=== PATIENT | female | born 1955 | race Caucasian/White ===

== ENCOUNTER 2024-01-05 20:34 | Emergency (ER) | payer OTHER ==
[~2024-01-05] VITALS: Ht 157.5 cm; Wt 81.8 kg
[2024-01-05 20:38] VITALS: TEMP 97.8
[2024-01-05 21:40] LABS: BASOPHILS % (AUTO) 0.3 % (0.0-2.0); EOSINOPHILS % (AUTO) 0.8 % (1.0-6.0); HEMOGLOBIN 16.4 g/dL (12.0-16.0); LYMPHOCYTES # (AUTO) 1.5 K/uL (1.0-4.8); MEAN CORPUSCULAR HEMOGLOBIN 32.1 pg (26.0-34.0); MEAN CORPUSCULAR HGB CONC 33.5 G/dL (31.0-37.0); MEAN CORPUSCULAR VOLUME 96 fL (80-100); MONOCYTES # (AUTO) 0.8 K/uL (0.1-1.0); MONOCYTES % (AUTO) 7.9 % (2.0-9.0); NEUTROPHILS # (AUTO) 7.2 K/uL (1.8-7.7); PLATELET COUNT (AUTO) 164 K/uL (150-450); RED BLOOD CELL COUNT(AUTO) 5.12 MIL/uL (4.00-5.20); RED CELL DISTRIBUTION WIDTH 14.4 % (11.5-14.5); WHITE BLOOD COUNT (AUTO) 9.5 K/uL (4.5-11.0)
[2024-01-05] MEDS: MORPHINE SULFATE 2 MG/ML SYRINGE IVP ONE (21:48)
[2024-01-05] MEDS: ACETAMINOPHEN 500 MG TABLET PO ONE (21:48)
[2024-01-05 21:50] LABS: ANION GAP 5 mmol/L (8-16); CALCIUM, TOTAL 9.9 mg/dL (8.8-10.5); CARBON DIOXIDE 34 mmol/L (22-29); CHLORIDE 101 mmol/L (98-107); GLOMERULAR FILTR. RATE CALC > 60 mL/min (>60); GLUCOSE,RANDOM 95 mg/dL (70-110); POTASSIUM 3.9 mmol/L (3.5-5.1); SODIUM SERUM 140 mmol/L (136-145); UREA NITROGEN, BLOOD 19 mg/dL (7-18)
[2024-01-05] MEDS ORDERED: IOHEXOL 350 MG/ML 100 ML VIAL ONE (21:52)
[2024-01-05] MEDS ORDERED: SODIUM CHLORIDE 0.9% 100 ML ONE (21:52)
[2024-01-05 21:56] LABS: ALANINE AMINOTRANSFERASE 22 U/L (12-78); ALBUMIN 3.7 g/dL (3.4-5.0); ALKALINE PHOSPHATASE 99 U/L (46-116); ASPARTATE AMINOTRANSFERASE 23 U/L (15-37); BILIRUBIN,TOTAL 0.5 mg/dL (0.1-1.0); TOTAL PROTEIN, SERUM 7.3 g/dL (6.4-8.2)
[2024-01-05] MEDS ORDERED: MORPHINE SULFATE 4 MG/ML SYRINGE IVP ONE (22:30)
[2024-01-05] MEDS: SODIUM CHLORIDE 0.9% 1,000 ML IV ONE (22:50)
[2024-01-05] MEDS: MORPHINE SULFATE 4 MG/ML SYRINGE IVP ONE (22:50)
[2024-01-05 23:28] LABS: COVID AG,FIA SOURCE NASAL SWAB
[2024-01-05 23:46] LABS: SARS-COV2 (COVID) ANTIGEN,FIA Negative (Negative)
[2024-01-06 00:52] VITALS: BP 128/88; PULSE 74; RESP 18
== END 2024-01-06 01:07 | disposition home or self-care (01) ==
LOC: EMS 20:35
DX: K62.3 Rectal prolapse (principal); J45.909 Unspecified asthma, uncomplicated; J44.9 Chronic obstructive pulmonary disease, unspecified; I25.10 Atherosclerotic heart disease of native coronary artery without angina pectoris; K21.9 Gastro-esophageal reflux disease without esophagitis; M79.7 Fibromyalgia; F17.210 Nicotine dependence, cigarettes, uncomplicated; Z88.8 Allergy status to other drugs, medicaments and biological substances; Z20.822 Contact with and (suspected) exposure to COVID-19
CPT/HCPCS: 99285; 74177; 96374; 96361; 87426; 80053; 85025; 36415; 96376; J2270 ×2; Q9967; J7050

== ENCOUNTER 2024-01-07 12:54 | Emergency (ER) | payer OTHER ==
[~2024-01-07] VITALS: Ht 157.5 cm; Wt 81.8 kg
[2024-01-07 13:30] VITALS: TEMP 97.9
[2024-01-07 14:25] VITALS: BP 127/79; PULSE 91; RESP 19
== END 2024-01-07 14:37 | disposition home or self-care (01) ==
LOC: EMS 13:01
DX: K62.3 Rectal prolapse (principal); J45.909 Unspecified asthma, uncomplicated; I25.10 Atherosclerotic heart disease of native coronary artery without angina pectoris; J44.9 Chronic obstructive pulmonary disease, unspecified; K21.9 Gastro-esophageal reflux disease without esophagitis; M79.7 Fibromyalgia; F17.210 Nicotine dependence, cigarettes, uncomplicated; Z88.2 Allergy status to sulfonamides; Z88.5 Allergy status to narcotic agent
CPT/HCPCS: 99281; Z7502

== ENCOUNTER 2024-01-09 14:13 | Inpatient (IN) | payer OTHER, MEDICARE ==
[~2024-01-09] VITALS: Ht 162.6 cm; Wt 90.6 kg
[2024-01-09] MEDS: MethylPREDNISolone SOD SUCC 125 MG/2 ML VIAL IVP ONE (14:51)
[2024-01-09 15:09] LABS: BASOPHILS % (AUTO) 0.4 % (0.0-2.0); EOSINOPHILS % (AUTO) 1.2 % (1.0-6.0); LYMPHOCYTES # (AUTO) 1.5 K/uL (1.0-4.8); LYMPHOCYTES % (AUTO) 18.1 % (22.0-44.0); MEAN CORPUSCULAR HGB CONC 33.4 G/dL (31.0-37.0); MEAN CORPUSCULAR VOLUME 96 fL (80-100); MONOCYTES # (AUTO) 0.7 K/uL (0.1-1.0); NEUTROPHILS # (AUTO) 6.1 K/uL (1.8-7.7); NEUTROPHILS % (AUTO) 72.3 % (40.0-70.0); PLATELET COUNT (AUTO) 154 K/uL (150-450); RED BLOOD CELL COUNT(AUTO) 4.69 MIL/uL (4.00-5.20); RED CELL DISTRIBUTION WIDTH 14.8 % (11.5-14.5); WHITE BLOOD COUNT (AUTO) 8.4 K/uL (4.5-11.0)
[2024-01-09 15:21] LABS: PROTHROMBIN TIME 10.7 SEC (9.4-11.6)
[2024-01-09 15:24] LABS: TROPONIN I-HIGH SENSITIVITY 8 ng/L (<51)
[2024-01-09 15:26] LABS: B-TYPE NATRIURETIC PEPTIDE 40 pg/mL (0-100)
[2024-01-09 15:29] LABS: ANION GAP 9 mmol/L (8-16); CALCIUM, TOTAL 9.4 mg/dL (8.8-10.5); CARBON DIOXIDE 29 mmol/L (22-29); CHLORIDE 101 mmol/L (98-107); CREATININE 0.86 mg/dL (0.60-1.30); GLOMERULAR FILTR. RATE CALC > 60 mL/min (>60); GLUCOSE,RANDOM 100 mg/dL (70-110); SODIUM SERUM 139 mmol/L (136-145); UREA NITROGEN, BLOOD 14 mg/dL (7-18)
[2024-01-09 15:35] LABS: ALANINE AMINOTRANSFERASE 21 U/L (12-78); ALKALINE PHOSPHATASE 78 U/L (46-116); ASPARTATE AMINOTRANSFERASE 21 U/L (15-37); BILIRUBIN,TOTAL 0.2 mg/dL (0.1-1.0); TOTAL PROTEIN, SERUM 6.6 g/dL (6.4-8.2)
[2024-01-09] MEDS: ACETAMINOPHEN 500 MG TABLET PO ONE (16:08)
[2024-01-09] MEDS: LEVALBUTEROL 1.25 MG/0.5 ML NEB SOLUTION NEB ONE (16:09)
[2024-01-09] MEDS: IPRATROPIUM BROMIDE 0.5 MG/2.5 ML NEB SOLUTION NEB ONE (16:09)
[2024-01-09 16:10] VITALS: PULSE 92; RESP 18; O2SAT 92
[2024-01-09 16:14] VITALS: PULSE 92; RESP 18; O2SAT 92
[2024-01-09 16:22] VITALS: PULSE 89; RESP 18; O2SAT 100
[2024-01-09] MEDS: CefTRIAXone 1 GM/DEXTROSE 50 ML IV ONE (17:32)
[2024-01-09] MEDS ORDERED: ONDANSETRON HCL 4 MG/2 ML VIAL IVP PRN (18:00)
[2024-01-09] MEDS ORDERED: ZOLPIDEM TARTRATE 5 MG TABLET PO PRN (18:00)
[2024-01-09] MEDS ORDERED: IPRATROPIUM BROMIDE 0.5 MG/2.5 ML NEB SOLUTION NEB PRN (18:00)
[2024-01-09] MEDS ORDERED: ALBUTEROL SULFATE 2.5 MG/0.5 ML NEB SOLUTION NEB PRN (18:00)
[2024-01-09] MEDS ORDERED: BISACODYL 10 MG RECTAL RECTAL SUPPOSITORY PR PRN (18:00)
[2024-01-09] MEDS ORDERED: MAGNESIUM HYDROXIDE SUSPENSION 30 ML UDCUP PO PRN (18:00)
[2024-01-09] MEDS: MethylPREDNISolone SOD SUCC 125 MG/2 ML VIAL IVP SCH (18:19)
[2024-01-09] MEDS: MORPHINE SULFATE 2 MG/ML SYRINGE IVP ONE (19:22)
[2024-01-09] MEDS: ONDANSETRON HCL 4 MG/2 ML VIAL IVP ONE (19:22)
[2024-01-09 20:00] VITALS: PULSE 93; RESP 18; O2SAT 95; O2SAT 96
[2024-01-09] MEDS: IPRATROPIUM BROMIDE 0.5 MG/2.5 ML NEB SOLUTION NEB SCH (20:00)
[2024-01-09] MEDS: ALBUTEROL SULFATE 2.5 MG/0.5 ML NEB SOLUTION NEB SCH (20:00)
[2024-01-09 20:15] VITALS: PULSE 93; RESP 18; O2SAT 98
[2024-01-09 21:38] VITALS: BP 134/67; PULSE 96; RESP 20; TEMP 97.4
[2024-01-09] MEDS: GuaiFENesin SR 600 MG ER TABLET PO SCH (22:00)
[2024-01-09] MEDS: BENZONATATE 100 MG CAPSULE PO SCH (22:00)
[2024-01-09] MEDS: DOCUSATE SODIUM 100 MG CAPSULE PO SCH (22:00)
[2024-01-10] VITALS (10 sets, daily range): BP systolic 103–146; BP diastolic 47–81; PULSE 88–112; RESP 18–20; TEMP 97.5–98.3; O2SAT 92–95
[2024-01-10] MEDS: HEPARIN SODIUM,PORCINE 5,000 UNITS/ML VIAL SQ SCH
[2024-01-10] MEDS: ACETAMINOPHEN 325 MG TABLET PO PRN (05:26)
[2024-01-10] MEDS: KETOROLAC TROMETHAMINE 15 MG/ML VIAL IVP ONE (06:07)
[2024-01-10] MEDS ORDERED: APIX5TAB PO (08:07)
[2024-01-10] MEDS ORDERED: LEVO125 PO (08:07)
[2024-01-10] MEDS ORDERED: METO-391 PO (08:09)
[2024-01-10] MEDS: PANTOPRAZOLE SODIUM 40 MG DR TABLET PO SCH (09:54)
[2024-01-10] MEDS ORDERED: SODIUM CHLORIDE 0.9% 250 ML IV ONE (17:18)
[2024-01-10] MEDS: CefTRIAXone 1 GM/DEXTROSE 50 ML IV SCH (17:33)
[2024-01-10] MEDS: AMITRIPTYLINE HCL 50 MG TABLET PO SCH (20:26)
[2024-01-10] MEDS: METHOCARBAMOL 750 MG TABLET PO SCH (20:28)
[2024-01-10] MEDS: OxyCODONE HCL/ACETAMINOPHEN 5-325 MG TABLET PO PRN (21:39)
[2024-01-11] VITALS (10 sets, daily range): BP systolic 123–139; BP diastolic 61–99; PULSE 88–109; RESP 18–20; TEMP 97.6–98.9; O2SAT 90–95
[2024-01-11] MEDS ORDERED: SODIUM CL IRRIG SOLN BOTTLE 250 ML IRRIG ONE (05:54)
[2024-01-11] MEDS: LEVOTHYROXINE SODIUM 125 MCG TABLET PO SCH (06:05)
[2024-01-11] MEDS: METOPROLOL SUCCINATE 50 MG ER TABLET PO SCH (08:44)
[2024-01-11] MEDS ORDERED: SODIUM CHLORIDE 0.9% 250 ML IV ONE (18:16)
[2024-01-12] VITALS (12 sets, daily range): BP systolic 121–143; BP diastolic 66–94; PULSE 69–99; RESP 16–24; TEMP 97.7–98.1; O2SAT 87–99
[2024-01-12] MEDS: OxyCODONE HCL/ACETAMINOPHEN 10-325 MG TABLET PO PRN (13:47)
[2024-01-13] VITALS (11 sets, daily range): BP systolic 129–141; BP diastolic 56–80; PULSE 61–87; RESP 16–20; TEMP 97.6–98.4; O2SAT 91–98
[2024-01-14 04:49] VITALS: BP 147/81; PULSE 82; RESP 18; TEMP 97.6
[2024-01-14 08:08] VITALS: PULSE 88; PULSE 96; RESP 20; O2SAT 88; O2SAT 96
[2024-01-14 08:23] VITALS: PULSE 80; RESP 20; O2SAT 98
[2024-01-14 08:33] VITALS: BP 139/68; PULSE 68; RESP 18; TEMP 98.1
[2024-01-14] MEDS ORDERED: FLUT1BLS IH (10:08)
[2024-01-14] MEDS ORDERED: PRED-554 PO (10:08)
== END 2024-01-14 11:40 | disposition home or self-care (01) | DRG 189 ==
LOC: EMS 14:16 → AHU 14:32 → 5S 18:50 → 6S 01-13 10:30
PROVIDERS: ADMIT Internal Medicine; ATTEND Internal Medicine
DX: J96.21 Acute and chronic respiratory failure with hypoxia (principal); J44.1 Chronic obstructive pulmonary disease with (acute) exacerbation; I48.20 Chronic atrial fibrillation, unspecified; D68.2 Hereditary deficiency of other clotting factors; K62.3 Rectal prolapse; K21.9 Gastro-esophageal reflux disease without esophagitis; I25.10 Atherosclerotic heart disease of native coronary artery without angina pectoris; M79.7 Fibromyalgia; F17.200 Nicotine dependence, unspecified, uncomplicated; E03.9 Hypothyroidism, unspecified; Z95.5 Presence of coronary angioplasty implant and graft; Z79.01 Long term (current) use of anticoagulants; Z79.899 Other long term (current) drug therapy; Z99.81 Dependence on supplemental oxygen; Z88.1 Allergy status to other antibiotic agents; Z88.5 Allergy status to narcotic agent; Z88.2 Allergy status to sulfonamides; Z88.7 Allergy status to serum and vaccine; Z88.8 Allergy status to other drugs, medicaments and biological substances
CPT/HCPCS: 71045; 80053; 83880; 84484; 85025; 85610; 85730; 93005; 94640; 99285; J0696; J1644; J1885; J2270; J2405; J2930; J7050; 36415-L1; 36415-TC; J7613; Z7610